=== PATIENT | male | born 1955 | race African-American/Black ===

== ENCOUNTER 2018-05-21 10:36 | Inpatient (IN) | payer OTHER ==
[2018-05-21 11:03] VITALS: BMI 23.7
--- NOTE | 2018-05-21 14:10 | HP ---
"CIWA Score Nausea/Vomitin-Mild Nausea/No Vomiting Muscle Tremors: 4-Moderate,w/Arms Extend Anxiety: 4-Mod. Anxious/Guarded Agitation: 4-Moderately Restless Paroxysmal Sweats: 3 Orientation: 0-Oriented Tacttile Disturbances: 0-None Auditory Disturbances: 0-None Visual Disturbances: 0-None Headache: 1-Very Mild CIWA-Ar Total Score: 17 - Admission Criteria OASAS Guidelines: Admission for Medically Managed Detox: Requires at least one of the followin. CIWA greater than 12 2. Seizures within the past 24 hours 3. Delirium tremens within the past 24 hours 4. Hallucinations within the past 24 hours 5. Acute intervention needed for co occurring medical disorder 6. Acute intervention needed for co occurring psychiatric disorder 7. Severe withdrawal that cannot be handled at a lower level of care (continued vomiting, continued diarrhea, abnormal vital signs) requiring intravenous medication and/or fluids 8. Admission ROS S - [facility] Chief Complaint: I need to go to detox to avoid going to [facility]. I need to get my life cleaned. Allergies/Adverse Reactions: Allergies Allergy/AdvReac Type Severity Reaction Status Date / Time No Known Allergies Allergy Verified 05/21/18 14:02 History of Present Illness: Pt is a 62yrold male with a history of alcohol dependence seeking detox for treatment. Pt was detox about 2months ago at [facility] then sent to [facility] rehab for 21 days released on 05/07/18. 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 pt states he is +PPD and recently had a chest x-ray. pt will speak with counselor and get consent and provide a copy of his chest x-ray. pt is also on suboxone. His suboxone is being dispensed by his residential program. The last time he received was yesterday. He has not been at his program since then. Pt will continue with his suboxone while in our detox facility. Pt states he take suboxone 3x a day to avoid the use of heroin. This has been confirmed with his program at [facility]. investment underwriter spoke with AMMON Lynn at the program who confirmed that pt took his last dose of suboxone yesterday and he is prescribed suboxone 8-2mg TID. The Drug Utilization Report below displays all of the controlled substance prescriptions, if any, that your patient has filled in the last twelve months. The information displayed on this report is compiled from pharmacy submissions to the Department, and accurately reflects the information as submitted by the pharmacies. This report was requested by: Christy Arteaga | Reference #: [id number] Others' Prescriptions Patient Name: Aleksey Raymundo Date: 1955 Address: [address] [place], [place] [id number] Sex: Male Rx Written Rx Dispensed Drug Quantity Days Supply Prescriber Name 05/13/2018 05/13/2018 buprenorphine-naloxone 8-2 mg sl tablet 14 7 Vipul Bell MD Patient Name: Aleksey Raymundo Date: 1955 Address: [address] [place] [address] Sex: Male Rx Written Rx Dispensed Drug Quantity Days Supply Prescriber Name 04/16/2018 04/16/2018 suboxone 8 mg-2 mg sl film 60 30 Brian Mcdaniels MD Patient Name: Aleksey Raymundo Date: 1955 Address: [address] [place], [place] [address] Sex: Male Rx Written Rx Dispensed Drug Quantity Days Supply Prescriber Name 03/20/2018 03/22/2018 suboxone 8 mg-2 mg sl film 90 30 Marilee Celis 09/18/2017 09/18/2017 suboxone 8 mg-2 mg sl film 90 30 Sybil Phoenix MD 09/09/2017 09/10/2017 chlordiazepoxide 10 mg capsule 12 4 Sybil Phoenix MD 09/09/2017 09/10/2017 suboxone 8 mg-2 mg sl film 30 10 Sybil Phoenix MD Patient Name: Aleksey Raymundo Date: 1955 Address: [address] [place] [address] Sex: Male Rx Written Rx Dispensed Drug Quantity Days Supply Prescriber Name 12/02/2017 12/02/2017 suboxone 8 mg-2 mg sl film 21 7 Shari Mahmood 11/22/2017 11/25/2017 suboxone 8 mg-2 mg sl film 14 7 Porter Muller MD 11/18/2017 11/18/2017 suboxone 8 mg-2 mg sl film 14 7 Shari Mahmood Patient Name: Aleksey Raymundo Date: 1955 Address: [address] [place] [address] Sex: Male Rx Written Rx Dispensed Drug Quantity Days Supply Prescriber Name 11/14/2017 11/14/2017 suboxone 8 mg-2 mg sl film 10 5 Shari Mahmood * - Drugs marked with an asterisk are compound drugs. If the compound drug is made up of more than one controlled substance, then each controlled substance will be a separate row in the table. Exam Limitations: No Limitations - Ebola screening Have you traveled outside of the country in the last 21 days: No Have you had contact with anyone from an Ebola affected area: No Have you been sick,other than usual withdrawal symptoms: No Do you have a fever: No - Review of Systems Constitutional: Chills, Night Sweats, Changes in sleep EENT: reports: Nose Congestion Respiratory: reports: No Symptoms reported Cardiac: reports: No Symptoms Reported GI: reports: Constipated, Poor Appetite, Poor Fluid Intake : reports: No Symptoms Reported Musculoskeletal: reports: Back Pain Integumentary: reports: Flushing, Sweating Neuro: reports: Headache, Tingling, Tremors Endocrine: reports: Excessive Sweating, Flushing, Intolerance to Cold, Intolerance to Heat Hematology: reports: No Symptoms Reported Psychiatric: reports: Judgement Intact, Mood/Affect Appropiate, Orientated x3, Agitated, Anxious Other Systems: Reviewed and Negative Patient History - Patient Medical History Hx Anemia: No Hx Asthma: No Hx Chronic Obstructive Pulmonary Disease (COPD): No Hx Cancer: No Hx Cardiac Disorders: No Hx Congestive Heart Failure: No Hx Hypertension: Yes Hx Hypercholesterolemia: No Hx Pacemaker: No HX Cerebrovascular Accident: No Hx Seizures: No Hx Dementia: No Hx Diabetes: No Hx Gastrointestinal Disorders: No Hx Liver Disease: No Hx Genitourinary Disorders: No Hx Sexually Transmitted Disorders: No Hx Renal Disease (ESRD): No Hx Thyroid Disease: No Hx Human Immunodeficiency Virus (HIV): No (negative) Hx Hepatitis C: Yes Hx Depression: Yes Hx Suicide Attempt: No (denies) Hx Bipolar Disorder: Yes Hx Schizophrenia: Yes - Patient Surgical History Past Surgical History: No - PPD History Previous Implant?: Yes Documented Results: Negative w/o proof PPD to be Administered?: Yes - Reproductive History Patient is a Female of Child Bearing Age (11 -55 yrs old): No - Smoking Cessation Smoking history: Former smoker Have you smoked in the past 12 months: No Hx Chewing Tobacco Use: No Initiated information on smoking cessation: Yes 'Breaking Loose' booklet given: 05/21/18 - Substance & Tx. History Hx Alcohol Use: Yes Hx Substance Use: Yes Substance Use Type: Alcohol, Cocaine Hx Substance Use Treatment: Yes (last detox [facility] two months ago) - Substances Abused Alcohol Route: Oral Frequency: Daily Amount used: 1 pint of vodka Age of first use: 31 Date of Last Use: 05/20/18 Cocaine Route: Inhalation Frequency: 1-2 times per week Amount used: half a gram Age of first use: 31 Date of Last Use: 05/20/18 Family Disease History - Family Disease History Family History: Denies Admission Physical Exam [facility] - Vital Signs Vital Signs: Vital Signs - 24 hr 05/21/18 11:01 Temperature 98.1 F Pulse Rate 80 Respiratory 18 Rate Blood Pressure 144/80 - Physical General Appearance: Yes: Appropriately Dressed, Moderate Distress, Tremorous, Irritable, Sweating, Anxious HEENTM: Yes: Hearing grossly Normal, Normal Voice, Nasal Congestion, Rhinorrhea Respiratory: Yes: Lungs Clear, Normal Breath Sounds, No Respiratory Distress Neck: Yes: No masses,lesions,Nodules Breast: Yes: Within Normal Limits Cardiology: Yes: Regular Rhythm, Regular Rate, S1, S2 Abdominal: Yes: Normal Bowel Sounds, Non Tender, Soft Genitourinary: Yes: Within Normal Limits Back: Yes: Normal Inspection Musculoskeletal: Yes: full range of Motion, Back pain Extremities: Yes: Normal Capillary Refill, Non-Tender, Tremors Neurological: Yes: Fully Oriented, Alert, Normal Response Integumentary: Yes: Normal Color, Diaphoresis Lymphatic: Yes: Within Normal Limits - Diagnostic (1) Alcohol dependence with uncomplicated withdrawal Current Visit: Yes Status: Chronic (2) Encounter for monitoring Suboxone maintenance therapy Current Visit: Yes Status: Chronic (3) Hypertension Current Visit: Yes Status: Chronic Qualifiers: Hypertension type: essential hypertension Qualified Code(s): I10 - Essential (primary) hypertension (4) Chronic bilateral low back pain with left-sided sciatica Current Visit: Yes Status: Chronic (5) Hepatitis C Current Visit: Yes Status: Chronic Qualifiers: Viral hepatitis chronicity: chronic Hepatic coma status: without hepatic coma Qualified Code(s): B18.2 - Chronic viral hepatitis C Cleared for Admission [facility] - Detox or Rehab [facility] Level of Care: Medically Managed Detox Regimen/Protocol: Librium [facility] Breath Alcohol Content Breath Alcohol Content: 0 Urine Drug Screen - Results Drug Screen Negative: No Urine Drug Screen Results: VERO-Cocaine, BUP-Suboxone"
[2018-05-21] MEDS ORDERED: IBUPROFEN 400 MG TABLET (FP) PO PRN (14:40)
[2018-05-21] MEDS ORDERED: MAGNESIUM HYDROX 2400MG/30ML ORAL SUSPENSION 30 ML CUP PO PRN (14:40)
[2018-05-21] MEDS ORDERED: chlordiazePOXIDE HCL 25 MG CAPSULE PO ONE (14:40)
[2018-05-21] MEDS ORDERED: MENTHOL/PHENOL 1 EACH UD MM PRN (14:40)
[2018-05-21] MEDS ORDERED: P-EPHED 60MG/TRIPROLIDI 2.5MG TABLET PO PRN (14:40)
[2018-05-21] MEDS ORDERED: MAGNESIUM CITRATE 300 ML BOTTLE PO PRN (14:40)
[2018-05-21] MEDS ORDERED: chlordiazePOXIDE HCL 25 MG CAPSULE PO PRN (14:40)
[2018-05-21] MEDS ORDERED: ACETAMINOPHEN 325 MG TABLET (FP) PO PRN (14:40)
[2018-05-21] MEDS ORDERED: hydrOXYzine PAMOATE 50 MG CAPSULE (FP) PO PRN (14:40)
[2018-05-21] MEDS ORDERED: MAG HYDROX/AL HYDROX/SIMETH 30 ML UNIT-DOSE CUP PO PRN (14:40)
[2018-05-21] MEDS ORDERED: guaiFENesin/D-METHORPHAN HB 10 ML UNIT-DOSE CUPS PO PRN (14:40)
[2018-05-21] MEDS ORDERED: LOPERAMIDE HCL 2 MG CAPSULE PO PRN (14:40)
[2018-05-21] MEDS: chlordiazePOXIDE HCL 25 MG CAPSULE PO SCH ×2 (18:03→22:56)
[2018-05-21] MEDS ORDERED: MELATONIN 5 MG TABLETS PO PRN (22:00)
[2018-05-21] MEDS ORDERED: BUPRENORPHINE/NALOXONE 8 MG/2 MG FILM PACKET SL SCH (22:00)
[2018-05-21] MEDS: BUPRENORPHINE/NALOXONE 8 MG/2 MG FILM PACKET SL SCH (22:54)
[2018-05-21] MEDS: THIAMINE HCL 100 MG TABLET (FP) PO SCH (22:54)
[2018-05-22] MEDS: BUPRENORPHINE/NALOXONE 8 MG/2 MG FILM PACKET SL SCH ×3 (05:37→21:50)
[2018-05-22] MEDS: chlordiazePOXIDE HCL 25 MG CAPSULE PO SCH ×4 (06:59→22:32)
--- NOTE | 2018-05-22 09:12 | PN ---
[facility] CIWA - CIWA Score Nausea/Vomitin-Mild Nausea/No Vomiting Muscle Tremors: 3 Anxiety: 3 Agitation: 2 Paroxysmal Sweats: 1-Minimal Palms Moist Orientation: 1-Uncertain about Date Tacttile Disturbances: 0-None Auditory Disturbances: 0-None Visual Disturbances: 0-None Headache: 1-Very Mild CIWA-Ar Total Score: 12 [facility] Progress Note (SOAP) Subjective: tremor sweating less body aches no muscle cramping today Objective: 05/22/18 09:12 Vital Signs Temperature 96.4 F L 05/22/18 09:06 Pulse Rate 74 05/22/18 09:06 Respiratory Rate 18 05/22/18 09:06 Blood Pressure 161/89 05/22/18 09:06 O2 Sat by Pulse Oximetry (%) lab pending Assessment: 05/22/18 09:12 withdrawal sx hypertension Plan: continue detox clonidine 0.1 mg prn
--- NOTE | 2018-05-22 09:45 | CONSULT ---
[facility] Psychiatric Consult - Data Date of interview: 05/22/18 Admission source: [facility] Identifying data: This is a 62 years old male, single, childless, living at [facility], on SSI support, wih history of Schizophrenia, Bipolar Disorder, psychiatric hospitalization history, history of Alcohol and Cocaine dependence, is reporting withdrawal synptoms and seeking for detox. Substance Abuse History: - Smoking Cessation. Smoking history: Former smoker. Have you smoked in the past 12 months: No. Hx Chewing Tobacco Use: No. Initiated information on smoking cessation: Yes. 'Breaking Loose' booklet given : 05/21/18. - Substance & Tx. History. Hx Alcohol Use: Yes. Hx Substance Use : Yes. Substance Use Type: Alcohol, Cocaine. Hx Substance Use Treatment: Yes ( last detox [facility] two months ago). - Substances Abused. Alcohol. Route: Oral. Frequency: Daily. Amount used: 1 pint of vodka. Age of first use : 31. Date of Last Use: 05/20/18. Cocaine. Route: Inhalation. Frequency: 1-2 times per week. Amount used: half a gram. Age of first use: 31. Date of Last Use: 05/20/18 Medical History: HepC+, LBP, HTN Psychiatric History: Patient reports to carry Schizophrenia, Bipolar Disorder, with most recent psychiatric hospitalization for safety on more then 15 years ago. Denies suicidal, homicidal history, reports currently stable on: Wellbutrin 100mg po bid. Gabapentin 800mg po tid Physical/Sexual Abuse/Trauma History: Denies Additional Comment: Wellbutrin 100mg po bid. Gabapentin 800mg po tid Mental Status Exam - Mental Status Exam Alert and Oriented to: Person Cognitive Function: Fair Patient Appearance: Unkempt Mood: Suspicious, Anxious, Irritable Patient Behavior: Guarded, Talkative, Appropriate Speech Pattern: Excessive Voice Loudness: Mildly Loud Thought Process: Circumstantial, Goal Oriented Thought Disorder: Being Controlled Hallucinations: Denies Suicidal Ideation: Denies Homicidal Ideation: Denies Insight/Judgement: Fair Appetite: Weight loss Muscle strength/Tone: Normal Gait/Station: Normal Additional Comments: Wellbutrin 100mg po bid. Gabapentin 800mg po tid Psychiatric Findings - Problem List ([place] 1, 2,3) (1) Alcohol dependence with uncomplicated withdrawal Current Visit: Yes Status: Chronic (2) Chronic bilateral low back pain with left-sided sciatica Current Visit: Yes Status: Chronic (3) Hepatitis C Current Visit: Yes Status: Chronic Qualifiers: Viral hepatitis chronicity: chronic Hepatic coma status: without hepatic coma Qualified Code(s): B18.2 - Chronic viral hepatitis C (4) Hypertension Current Visit: Yes Status: Chronic Qualifiers: Hypertension type: essential hypertension Qualified Code(s): I10 - Essential (primary) hypertension (5) Schizoaffective disorder, bipolar type Current Visit: Yes Status: Acute - Initial Treatment Plan Initial Treatment Plan: Wellbutrin 100mg po bid. Gabapentin 800mg po tid
[2018-05-22 10:26] LABS: HEMOGLOBIN 11.8 GM/dL (11.7-16.9); MCH 31.6 pg (25.7-33.7); MCHC 33.9 g/dl (32.0-35.9); MEAN CELL VOLUME 93.3 fl (80-96); MEAN PLT VOLUME 10.5 fl (7.5-11.1); PLATELET COUNT 238 K/MM3 (134-434); RBC 3.75 M/mm3 (4.00-5.60); RDW 14.2 % (11.9-15.9); WHITE BLOOD COUNT 8.5 K/mm3 (4.0-10.0)
[2018-05-22] MEDS: GABAPENTIN 400 MG CAPSULE (FP) PO SCH ×2 (10:34→21:50)
[2018-05-22] MEDS: cloNIDine HCL 0.1 MG TABLET PO PRN (10:35)
[2018-05-22] MEDS: amLODIPine BESYLATE 10 MG TABLET (FP) PO SCH (10:36)
[2018-05-22] MEDS: PRENATAL VITAMINS W/ FOLIC ACID TABLET (FP) PO SCH (10:37)
[2018-05-22 10:56] LABS: ALBUMIN 3.7 g/dl (3.4-5.0); ALK PHOS 57 U/L (45-117); ANION GAP 7 MMOL/L (8-16); BILIRUBIN,TOTAL 0.8 mg/dL (0.2-1); BLOOD UREA NITROGEN 21 mg/dL (7-18); CALCIUM 9.2 mg/dL (8.5-10.1); CHLORIDE 105 mmol/L (98-107); CO2 28 mmol/L (21-32); CREATININE 0.9 mg/dL (0.55-1.3); GLUCOSE,RANDOM 90 mg/dL (74-106); POTASSIUM 4.1 mmol/L (3.5-5.1); SGOT/AST 35 U/L (15-37); SGPT/ALT 54 U/L (13-61); SODIUM 140 mmol/L (136-145); TOT PROT 7.2 g/dl (6.4-8.2)
[2018-05-22] MEDS: buPROPion HCL 100 MG TABLET PO SCH ×2 (11:41→17:42)
--- NOTE | 2018-05-22 14:19 | EKG ---
Test Reason : Blood Pressure : / mmHG Vent. Rate : 083 BPM Atrial Rate : 083 BPM P-R Int : 138 ms QRS Dur : 082 ms QT Int : 374 ms P-R-T Axes : 068 031 038 degrees QTc Int : 439 ms NORMAL SINUS RHYTHM NORMAL ECG NO PREVIOUS ECGS AVAILABLE Confirmed by FLORENCE MOYER MD ([id number]) on 05/22/2018 2:19:04 PM Referred By: Confirmed By:FLORENCE MOYER MD
[2018-05-22] MEDS: THIAMINE HCL 100 MG TABLET (FP) PO SCH (21:53)
[2018-05-23] MEDS: BUPRENORPHINE/NALOXONE 8 MG/2 MG FILM PACKET SL SCH ×3 (05:11→22:34)
[2018-05-23] MEDS: chlordiazePOXIDE HCL 25 MG CAPSULE PO SCH ×2 (07:43→11:01)
[2018-05-23] MEDS: cloNIDine HCL 0.1 MG TABLET PO PRN (09:31)
[2018-05-23] MEDS: amLODIPine BESYLATE 10 MG TABLET (FP) PO SCH (10:22)
[2018-05-23] MEDS: GABAPENTIN 400 MG CAPSULE (FP) PO SCH ×2 (10:22→22:34)
[2018-05-23] MEDS: PRENATAL VITAMINS W/ FOLIC ACID TABLET (FP) PO SCH (10:23)
[2018-05-23] MEDS: buPROPion HCL 100 MG TABLET PO SCH ×2 (10:23→17:27)
[2018-05-23] MEDS ORDERED: DOCUSATE SODIUM 100 MG CAPSULE (FP) PO ONE (15:10)
--- NOTE | 2018-05-23 15:53 | PN ---
S CIWA - CIWA Score Nausea/Vomitin Muscle Tremors: 2 Anxiety: 0-No Anxiety, at Ease Agitation: 0-Normal Activity Paroxysmal Sweats: 2 Orientation: 0-Oriented Tacttile Disturbances: 2-Mild Itch/Numbness/Burn Auditory Disturbances: 2-Mild Harshness/Frighten Visual Disturbances: 0-None Headache: 0-None Present CIWA-Ar Total Score: 11 [facility] Progress Note (SOAP) Subjective: Tremors, Sweating, Constipation, Interrupted Sleep, Nausea. Objective: PATIENT A & O X 3, OBSERVED AMBULATING ON UNIT. IN NO ACUTE DISTRESS. PATIENT DENIES CHEST PAIN. 05/23/18 15:58 Vital Signs Temperature 98.5 F 05/23/18 13:07 Pulse Rate 83 05/23/18 13:07 Respiratory Rate 17 05/23/18 13:07 Blood Pressure 155/80 05/23/18 13:07 O2 Sat by Pulse Oximetry (%) Laboratory Tests 05/22/18 05/22/18 05/22/18 06:00 06:00 06:00 WBC 8.5 RBC 3.75 L Hgb 11.8 Hct 35.0 L MCV 93.3 MCH 31.6 MCHC 33.9 RDW 14.2 Plt Count 238 MPV 10.5 Sodium 140 Potassium 4.1 Chloride 105 Carbon Dioxide 28 Anion Gap 7 L BUN 21 H Creatinine 0.9 Creat Clearance w eGFR > 60 Random Glucose 90 Calcium 9.2 Total Bilirubin 0.8 AST 35 ALT 54 Alkaline Phosphatase 57 Total Protein 7.2 Albumin 3.7 RPR Titer Nonreactive LABS NOTED. Assessment: 05/23/18 15:58 WITHDRAWAL SYMPTOMS. HYPERTENSION. Plan: CONITUN DETOX. COLACE PO FOR CONSTIPATION. CLONIDINE, 0.1 MG PO BID FOR ELEVATED BP DESPITE CURRENT TREATMENT WITH AMLODIPINE.
[2018-05-23] MEDS: chlordiazePOXIDE 5 MG CAPSULE PO SCH ×2 (17:27→22:38)
[2018-05-23] MEDS: THIAMINE HCL 100 MG TABLET (FP) PO SCH (22:34)
[2018-05-23] MEDS: DOCUSATE SODIUM 100 MG CAPSULE (FP) PO SCH (22:35)
[2018-05-23] MEDS: cloNIDine HCL 0.1 MG TABLET PO SCH (22:35)
[2018-05-24] MEDS: chlordiazePOXIDE 5 MG CAPSULE PO SCH ×2 (05:11→10:35)
[2018-05-24] MEDS: BUPRENORPHINE/NALOXONE 8 MG/2 MG FILM PACKET SL SCH (05:11)
[2018-05-24 09:34] VITALS: BP 128/77; PULSE 80; TEMP 99.3
[2018-05-24] MEDS: cloNIDine HCL 0.1 MG TABLET PO SCH (10:32)
[2018-05-24] MEDS: amLODIPine BESYLATE 10 MG TABLET (FP) PO SCH (10:32)
[2018-05-24] MEDS: GABAPENTIN 400 MG CAPSULE (FP) PO SCH (10:32)
[2018-05-24] MEDS: buPROPion HCL 100 MG TABLET PO SCH (10:32)
[2018-05-24] MEDS: DOCUSATE SODIUM 100 MG CAPSULE (FP) PO SCH (10:32)
[2018-05-24] MEDS: PRENATAL VITAMINS W/ FOLIC ACID TABLET (FP) PO SCH (10:33)
--- NOTE | 2018-05-24 14:24 | PN ---
[facility] Progress Note (SOAP) Subjective: Patient Denies Any Current Withdrawal / Detox Symptoms and Reports That He Feels Well Overall At This Time. Objective: PATIENT A & O X 3, OBSERVED AMBULATING ON UNIT. IN NO ACUTE DISTRESS. 05/24/18 14:22 Vital Signs Temperature 99.3 F 05/24/18 09:33 Pulse Rate 80 05/24/18 09:33 Respiratory Rate 18 05/24/18 09:33 Blood Pressure 128/77 05/24/18 09:33 O2 Sat by Pulse Oximetry (%) Laboratory Tests 05/22/18 05/22/18 05/22/18 06:00 06:00 06:00 WBC 8.5 RBC 3.75 L Hgb 11.8 Hct 35.0 L MCV 93.3 MCH 31.6 MCHC 33.9 RDW 14.2 Plt Count 238 MPV 10.5 Sodium 140 Potassium 4.1 Chloride 105 Carbon Dioxide 28 Anion Gap 7 L BUN 21 H Creatinine 0.9 Creat Clearance w eGFR > 60 Random Glucose 90 Calcium 9.2 Total Bilirubin 0.8 AST 35 ALT 54 Alkaline Phosphatase 57 Total Protein 7.2 Albumin 3.7 RPR Titer Nonreactive LABS NOTED. Assessment: 05/24/18 14:23 COMPLETION OF DETOX REGIMEN. Plan: PATIENT TO BE SCHEDULED FOR DISCHARGE FROM DETOX UNIT TODAY.
--- NOTE | 2018-05-24 14:34 | DS ---
[facility] Detox Discharge Summary Admission Date: 05/21/18 Discharge Date: 05/24/18 - History Present History: Alcohol Dependence Additional Comments: PATIENT DENEIS CURRENT WITHDRAWAL/DETOX SYMPTOMS AND REPORTS THAT HE FEELS WELL OVERALL AT TIME OF DISCHARGE FROM DETOX UNIT. PATIENT WILL RETURN (TODAY) TO [facility] ([place], [place], WHERE HE IS CURRENTLY A MEMBER) FOR AFTERCARE ADN FOR MEDICATION ADMINISTRATION, INCLUDING DAILY SUBOXONE. PATIENT ADVISED TO FOLLOW-UP WITH MEDICAL PROVIDER AT .[facility]. (PATIENT UNABLE TO RECALL NAME OF MEDICAL PROVIDER AT THIS TIME) FOR HISTORY OF SUBOXONE MAINTENANCE THERAPY. PATIENT VERBALIZED UNDERSTANDING OF RECOMMENDATION. PATIENT ALSO NOTES THAT HE WILL ALSO GO FOR REHAB AT [facility] ([place], [place]) IN THE NEXT FEW DAYS. PATIENT DECLINED OFFER OF MEDICATION PRESCRIPTION FOR HOME MEDICATION AT TIME OF DISCHARGE FROM DETOX UNIT, NOTING THAT HE CURRENTLY RECEIVES ADMINISTRATION OF DAILY DOSES OF ALL PRESCRIBED MEDICATIONS, INCLUDING SUBOXONE, AT [facility] ([place], [place]), WHERE HE REPORTS THAT HE WILL RETURN DIRECTLY TO AFTER LEAVING DETOX UNIT. PATIENT WAS DISCHARGED FROM DETOX UNIT IN STABLE MEDICAL CONDITION. Pertinent Past History: Hep C, History of Depression, History of Bipolar Disorder, Schizoaffective Disorder, Chronic Lower Back Pain (Bilateral) with Sciatica, History of Suboxone Maintenance Therapy. - Physical Exam Results Vital Signs: Vital Signs Temperature 99.3 F 05/24/18 09:33 Pulse Rate 80 05/24/18 09:33 Respiratory Rate 18 05/24/18 09:33 Blood Pressure 128/77 05/24/18 09:33 O2 Sat by Pulse Oximetry (%) Pertinent Admission Physical Exam Findings: WITHDRAWAL SYMPTOMS. Laboratory Tests 05/22/18 05/22/18 05/22/18 06:00 06:00 06:00 WBC 8.5 RBC 3.75 L Hgb 11.8 Hct 35.0 L MCV 93.3 MCH 31.6 MCHC 33.9 RDW 14.2 Plt Count 238 MPV 10.5 Sodium 140 Potassium 4.1 Chloride 105 Carbon Dioxide 28 Anion Gap 7 L BUN 21 H Creatinine 0.9 Creat Clearance w eGFR > 60 Random Glucose 90 Calcium 9.2 Total Bilirubin 0.8 AST 35 ALT 54 Alkaline Phosphatase 57 Total Protein 7.2 Albumin 3.7 RPR Titer Nonreactive LABS NOTED. - Treatment Hospital Course: Detox Protocol Followed, Detoxed Safely, Responded well, Discharged Condition Good Patient has Accepted a Rehab Referral to: [facility] ([place], [place]). - Medication Discharge Medications: Ambulatory Orders Amlodipine Besylate [Norvasc -] 10 mg PO DAILY 05/21/18 Buprenorphine/Naloxone [Suboxone 8Mg/2Mg Sl Film -] 1 each SL TID 05/21/18 Bupropion HCl [Wellbutrin -] 100 mg PO BID #60 tablet 05/22/18 Gabapentin [Neurontin -] 800 mg PO TID #90 capsule 05/22/18 - Diagnosis (1) Schizoaffective disorder, bipolar type Status: Acute (2) Alcohol dependence with uncomplicated withdrawal Status: Acute (3) Chronic bilateral low back pain with left-sided sciatica Status: Chronic (4) Encounter for monitoring Suboxone maintenance therapy Status: Chronic (5) Hepatitis C Status: Chronic Qualifiers: Viral hepatitis chronicity: chronic Hepatic coma status: without hepatic coma Qualified Code(s): B18.2 - Chronic viral hepatitis C (6) Hypertension Status: Chronic Qualifiers: Hypertension type: essential hypertension Qualified Code(s): I10 - Essential (primary) hypertension - AMA Did Patient Leave Against Medical Advice: No
[2018-05-24] MEDS ORDERED: chlordiazePOXIDE HCL 10 MG CAPSULE PO SCH (17:00)
--- NOTE | 2018-05-26 14:40 | PN ---
[facility] Progress Note Note: Received Telephone Call from Director Of Training from [facility] ([place], [place]), stating that patient is currently there awaiting admission. Patient has history of taking Amlodipine, 10 mg Po Daily for treatemtn of HTN. Director Of Training at [facility] Requests to have prescription for Amlodipine, 10 mg PO daily sent to patient's Pharmacy ([place], [place]) to cover him for time while he is admitted there for Rehab. Prescription sent electronically to [facility], [place], [place]). Migdalia Devries NP
== END 2018-05-24 12:51 | disposition home or self-care (01) | DRG 773 ==
LOC: YASAS 10:36 → Y3N 15:05
PROVIDERS: ADMIT Neuromusculoskeletal Medicine & OMM; ATTEND Neuromusculoskeletal Medicine & OMM
PROC: HZ2ZZZZ Detoxification Services for Substance Abuse Treatment (ICD-10-PCS; principal; 2018-05-21)
DX: F10.230 Alcohol dependence with withdrawal, uncomplicated (principal); F11.20 Opioid dependence, uncomplicated; F25.0 Schizoaffective disorder, bipolar type; I10 Essential (primary) hypertension; B18.2 Chronic viral hepatitis C; M54.42 Lumbago with sciatica, left side; G89.29 Other chronic pain; Z87.891 Personal history of nicotine dependence
CPT/HCPCS: 36415; 71046-TC-FY; 80053; 85027; 86593; 93005; 93010; J0735